=== PATIENT | male | born 2000 | race African-American/Black ===

== ENCOUNTER 2020-10-19 15:59 | Emergency (ER) | payer SELFPAY ==
[~2020-10-19] VITALS: Ht 182.9 cm; Wt 65.2 kg
[2020-10-19 16:02] VITALS: BP 116/81
--- NOTE | 2020-10-19 16:16 | NUR ---
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
[2020-10-19 16:43] LABS: MICROSCOPIC INDICATED
[2020-10-19] MEDS ORDERED: AZITHROMYCIN 500 MG TABLET ONE ×2 (18:12→18:16)
[2020-10-19] MEDS ORDERED: CEFTRIAXONE 250 MG ONE (18:12)
[2020-10-19] MEDS ORDERED: CEFTRIAXONE 250 MG IM ONE (18:30)
[2020-10-19] MEDS ORDERED: AZITHROMYCIN 500 MG TABLET PO ONE (18:30)
== END 2020-10-19 18:36 | disposition home or self-care (01) ==
LOC: ED 18:00
DX: R30.0 Dysuria (principal); Z20.2 Contact with and (suspected) exposure to infections with a predominantly sexual mode of transmission
CPT/HCPCS: 81001; 87086; 87491; 87591; 96372; 99283; J0696